=== PATIENT | female | born 1985 | race Caucasian/White ===

== ENCOUNTER → 2018-06-12 12:21 | Outpatient (CLI) | payer OTHER, SELFPAY ==
[2018-06-13 18:12] LABS: Hepatitis B Surf AB Imm QUANT < 5 mIU/mL (> 9)
== END ==
PROVIDERS: PCP Family Medicine; Visit Provider Family Medicine
DX: Z78.9 Other specified health status (principal); Z01.84 Encounter for antibody response examination
CPT/HCPCS: 36415; 86317; 86787

== ENCOUNTER → 2018-09-15 19:40 | Outpatient (CLI) | payer OTHER, SELFPAY ==
--- NOTE | 2018-09-15 19:44 | DI.RAD.S_ITS ---
PROCEDURE: XR KNEE RT 3V INDICATIONS: r knee pain TECHNIQUE: 3 views of the knee were acquired. COMPARISON: None. FINDINGS: Bones: No fractures or dislocations. No suspicious bony lesions. Soft tissues: No joint effusion. No suspicious soft tissue calcifications. IMPRESSION: No acute osseous abnormalities. Dictated by: Piedad Marinelli M.D. on 09/15/2018 at 20:26 Approved by: Piedad Marinelli M.D. on 09/15/2018 at 20:27
== END ==
PROVIDERS: PCP Family Medicine; Visit Provider Physician Assistant
DX: M25.561 Pain in right knee (principal)
CPT/HCPCS: 73562

== ENCOUNTER → 2018-11-11 16:55 | Outpatient (CLI) | payer OTHER, SELFPAY | PROVIDERS: PCP Family Medicine; Visit Provider Family Medicine | DX: R30.0 Dysuria (principal) | CPT/HCPCS: 87086 ==

== ENCOUNTER → 2018-12-24 14:58 | Outpatient (CLI) | payer OTHER, SELFPAY | PROVIDERS: PCP Family Medicine; Visit Provider Physician Assistant | DX: M54.9 Dorsalgia, unspecified (principal) | CPT/HCPCS: 87086 ==